=== PATIENT | male | born 1955 | race Caucasian/White ===

== ENCOUNTER 2025-05-23 13:26 | Emergency (ER) | payer OTHER ==
[~2025-05-23] VITALS: Ht 175.3 cm; Wt 84.0 kg
--- NOTE | 2025-05-23 13:42 | ED.PDOC ---
History of Present Illness HPI Comments 69 year old male PMHx HTN, HLD presents to the ED via EMS with a chief complaint of back pain onset last night around 22:00. Patient states he began experiencing LT sided low back pain, radiates down to LT leg, has taken [place], Flexeril with slight, intermittent relief. Patient states pain was intense, causing nausea. He states he is also experiencing bilateral feel numbness. Denies fever, chills, nausea, vomiting, cough, congestion, dizziness, shortness of breath, fall, injury, trauma. No other symptoms or modifying factors present at this time. Chief Complaint: Back Pain Time Seen by MD: 13:30 Primary Care Provider: STEPH Navarro Notes: Medications, Allergies Allergies: Coded Allergies: NO KNOWN ALLERGIES (Unverified , 08/03/14) Information Source: Patient, Emergency Med Personnel Mode of Arrival: EMS Severity: Moderate Timing: Hours Duration: Since onset Prehospital treatment: Pain Meds Past Medical History PAST MEDICAL HISTORY: High Lipids, HTN Surgical History (Other): carpal tunel Family History Family History: Reviewed,noncontributory to illness, No family hx of Cancer, No family hx of DM, No family hx of Heart bernardino, No family hx of HTN, No family hx ofKidney bernardino, No family hx of Liver bernardino, No family hx of Lung bernardino, No family hx of Stroke Social History Smoker: Non-Smoker Alcohol: Denies ETOH Use Drugs: Denies Drug Use Lives In: Home Constitutional: denies: chills, diaphoresis, fatigue, fever, malaise, sweats, weakness, others EENTM: denies: blurred vision, double vision, ear bleeding, ear discharge, ear drainage, ear pain, ear ringing, eye pain, eye redness, hearing loss, mouth pain , mouth swelling, nasal discharge, nose bleeding, nose congestion, nose pain, photophobia, tearing, throat pain, throat swelling, voice changes, others Respiratory: denies: cough, hemoptysis, orthopnea, SOB at rest, shortness of breath, SOB with excertion, stridor, wheezing, others Cardiovascular: denies: chest pain, dizzy spells, diaphoresis, Dyspnea on exertion, edema, irregular heart beat, left arm pain, lightheadedness, palpitations, PND, syncope, others Gastrointestinal: denies: abdomen distended, abdominal pain, blood streaked bowels, constipated, diarrhea, dysphagia, difficulty swallowing, hematemesis, melena, nausea, poor appetite, poor fluid intake, rectal bleeding, rectal pain, vomiting, others Genitourinary: denies: burning, dysuria, flank pain, frequency, hematuria, incontinence, penile discharge, penile sore, pain, testicle pain, testicle swelling, urgency, others Neurological: reports: numbness (bilateral feet); denies: dizziness, fainting, headache, left sided numbness, left sided weakness, paresthesia, pre-existing deficit, right sided numbness, right sided weakness, seizure, speech problems, tingling, tremors, weakness, others Musculoskeletal: reports: back pain, others (LT lef pain); denies: gout, joint pain, joint swelling, muscle pain, muscle stiffness, neck pain Integumetry: denies: bruises, change in color, change in hair/nails, dryness, laceration, lesions, lumps, rash, wounds, others Allergic/Immunocompromised: denies: Difficulty Healing, Frequent Infections, Hives, Itching, others Hematologic/Lymphatic: denies: anemia, blood clots, easy bleeding, easy bruising, swollen glands, others Endocrine: denies: excessive hunger, excessive sweating, excessive thirst, excessive urination, flushing, intolerance to cold, intolerance to heat, unexplained weight gain, unexplained weight loss, others Psychiatric: denies: anxiety, bipolar disorder, depression, hopeless, panic disorder, schizophrenia, sleepless, suicidal, others All Other Systems: Reviewed and Negative Physical Exam General Appearance: Normal HEENT: Normal ENT Inspection, Pharynx Normal, TMs Normal Neck: Full Range of Motion, Non-Tender, Normal, Normal Inspection Respiratory: Chest Non-Tender, Lungs Clear, No Accessory Muscle Use, No Respiratory Distress, Normal Breath Sounds Cardiovascular: No Edema, No JVD, No Murmur, No Gallop, Normal Peripheral Pul ses, Regular Rate/Rhythm Breast Exam: Deferred Gastrointestinal: No Organomegaly, Non Tender, No Pulsatile Mass, Normal Bowel Sounds, Soft Genitalia: Deferred Pelvic: Deferred Rectal: Deferred Extremities: No calf tenderness, Normal capillary refill, Normal inspection, Normal range of motion, Non-tender, No pedal edema Musculoskeletal : Apperance: Normal Neurologic: Alert, project management director II-XII nml as Tested, No Motor Deficits, Normal Affect, Normal Mood, No Sensory Deficits Cerebellar Function: Normal Reflexes: Normal Skin: Dry, Normal Color, Warm Lymphatic: No Adenopathy Was a procedure done? Was a procedure done?: No Differential Dx Considerations may include: Musculoskeletal strain, lumbar strain X-Ray, Labs, Meds, VS Vital Signs Date Time Temp Pulse Resp B/P (MAP) Pulse Ox O2 Delivery O2 Flow Rate FiO2 05/23/25 13:56 58 18 112/42 05/23/25 13:50 97.9 58 18 112/42 (65) 100 97.9 05/23/25 13:47 18 98 Room Air* 0 21 05/23/25 13:29 97.6 64 18 119/71 100 97.6 Lab Test 05/23/25 14:16 Range/Units White Blood Count 7.0 4.4-10.8 10^3/uL Red Blood Count 4.55 4.5-5.90 10^6/uL Hemoglobin 14.3 13.5-17.5 g/dL Hematocrit 41.8 41.0-53.0 % Mean Corpuscular Volume 91.9 80.0-100.0 fL Mean Corpuscular Hemoglobin 31.6 28.0-32.0 pg Mean Corpuscular Hemoglobin Concent 34.4 32.0-36.0 g/dL Red Cell Distribution Width 15.1 H 11.8-14.3 % Platelet Count 150 140-450 10^3/uL Mean Platelet Volume 10.6 6.9-10.8 fL Neutrophils (%) (Auto) 82.0 H 37.0-80.0 % Lymphocytes (%) (Auto) 7.3 L 10.0-50.0 % Monocytes (%) (Auto) 10.0 0.0-12.0 % Eosinophils (%) (Auto) 0.3 0.0-7.0 % Basophils (%) (Auto) 0.4 0.0-2.0 % Neutrophils # (Auto) 5.7 1.6-8.6 10 ^3/uL Lymphocytes # (Auto) 0.5 0.4-5.4 10 ^3/uL Monocytes # (Auto) 0.7 0-1.3 10 ^3/uL Eosinophils # (Auto) 0 0-0.8 10 ^3/uL Basophils # (Auto) 0 0-0.2 10 ^3/uL Nucleated Red Blood Cells 0.1 % Sodium Level 137 136-145 mmol/L Potassium Level 3.6 3.5-5.1 mmol/L Chloride Level 107 98-107 mmol/L Carbon Dioxide Level 19 L 20-31 mmol/L Anion Gap 11 5-15 Blood Urea Nitrogen 7 L 9-23 mg/dL Creatinine 0.76 0.700-1.30 mg/dL Glomerular Filtration Rate Calc 99 >90 mL/min BUN/Creatinine Ratio 9.2 L 10.0-20.0 Serum Glucose 94 74-106 mg/dL Calcium Level 9.2 8.7-10.4 mg/dL Current Medications Medications (Trade) Dose Ordered Sig/Darnell Route Start Time Stop Time Status Last Admin Sodium Chloride 1,000 ml @ 1,000 mls/hr Q1H ONCE IV 05/23/25 13:45 05/23/25 14:44 DC 05/23/25 14:13 Morphine Sulfate 4 mg ONCE ONCE IV 05/23/25 13:45 05/23/25 13:46 DC 05/23/25 13:56 Cyclobenzaprine HCl (Flexeril Tablet) 10 mg ONCE ONCE PO 05/23/25 13:45 05/23/25 13:46 DC 05/23/25 13:50 Time of 1ST Reevaluation: 14:00 Reevaluation 1ST: Unchanged Patient Education/Counseling: Diagnosis, Treatment, Prognosis Family Education/Counseling: No Family Present SEPSIS Sepsis Screen Physician Orders Lumbar Spine 3 View (05/23/25 13:35) Urinalysis (05/23/25 13:35) Vital Signs Date Time Temp Pulse Resp B/P (MAP) Pulse Ox O2 Delivery O2 Flow Rate FiO2 05/23/25 13:56 58 18 112/42 05/23/25 13:50 97.9 58 18 112/42 (65) 100 97.9 05/23/25 13:47 18 98 Room Air* 0 21 05/23/25 13:29 97.6 64 18 119/71 100 97.6 Laboratory Tests Test 05/23/25 14:16 White Blood Count 7.0 10^3/uL (4.4-10.8) Medications Medications Dose Ordered Sig/Darnell Route Start Time Stop Time Status Last Admin Dose Admin Cyclobenzaprine HCl 10 mg ONCE ONCE PO 05/23/25 13:45 05/23/25 13:46 DC 05/23/25 13:50 Morphine Sulfate 4 mg ONCE ONCE IV 05/23/25 13:45 05/23/25 13:46 DC 05/23/25 13:56 Sodium Chloride 1,000 ml @ 1,000 mls/hr Q1H ONCE IV 05/23/25 13:45 05/23/25 14:44 DC 05/23/25 14:13 Departure 1 Departure Time of Disposition: 16:00 (Patient with intractable lower back pain. We will admit patient for pain control and expert consultation) Impression: Primary Impression: Intractable low back pain Additional Impression: Leg weakness Qualified Codes: R29.898 - Other symptoms and signs involving the musculoskeletal system Disposition: ADMITTED INPATIENT Admit to: Med Surg Condition: Serious Critical Care Note Critical Care Time?: No Stability Stability form required: No Heart Score Heart Score: Heart Score Response (Comments) Value History N/A 0 EKG N/A 0 Age N/A 0 Risk Factors N/A 0 Troponin N/A 0 Total 0 I personally scribed for PRO JETT MD ([email or web address]) on 05/23/25 at 13:42. Electronically submitted by Hoa Schmidt ([email or web address]). PRO JETT MD May 23, 2025 13:42
[2025-05-23 13:47] VITALS: RESP 18; O2SAT 98
[2025-05-23] MEDS: CYCLOBENZAPRINE HCL 10 MG TAB PO ONE ×2 (13:50→22:54)
[2025-05-23] MEDS: MORPHINE SULFATE 4 MG/ML SYR/VIAL IV ONE ×2 (13:56→16:53)
[2025-05-23] MEDS: SODIUM CHLORIDE 0.9% 1,000 ML IV ONE (14:13)
[2025-05-23 14:27] LABS: Hematocrit 41.8 % (41.0-53.0); Hemoglobin 14.3 g/dL (13.5-17.5); Mean Corpuscular Hemoglobin 31.6 pg (28.0-32.0); Mean Corpuscular Volume 91.9 fL (80.0-100.0); Nucleated Red Blood Cells % 0.1 %
--- NOTE | 2025-05-23 14:32 | DVH ---
INDICATION: lower back pain TECHNIQUE: Frontal and lateral views of the lumbar spine were obtained. COMPARISON: MR LUMBAR SPINE WO on DOS: 09/09/24, DX BONE DENSITY (DXA) SPINE/HIP/FOREARM on DOS: 09/07/24 FINDINGS: . There are no fractures or subluxations. Vertebral body heights and disc spaces are well m aintained. Paravertebral soft tissues are unremarkable. IMPRESSION: 1. Of the visualized spine, there is no evidence for fracture or subluxation.
[2025-05-23 14:34] LABS: Chloride 107 mmol/L (98-107); Potassium 3.6 mmol/L (3.5-5.1); Sodium 137 mmol/L (136-145)
[2025-05-23 14:35] LABS: Anion Gap 11 (5-15); Calcium 9.2 mg/dL (8.7-10.4)
[2025-05-23 14:36] LABS: Carbon Dioxide 19 mmol/L (20-31)
[2025-05-23 14:40] LABS: BUN/Creatinine Ratio 9.2 (10.0-20.0); Blood Urea Nitrogen 7 mg/dL (9-23); Glucose 94 mg/dL (74-106)
[2025-05-23 16:32] LABS: Urine Protein, UAD Negative (Negative)
[2025-05-23] MEDS: KETAMINE 50mg/ML 10ml Vial (500mg/10ml) IV ONE (16:54)
[2025-05-23] MEDS: HYDROmorphone HCL 2 MG/ML VL/or syr IV ONE (20:29)
[2025-05-23] MEDS: ONDANSETRON HCL 4 MG/2 ML VIAL IV ONE (20:30)
--- NOTE | 2025-05-23 21:29 | DVH ---
EXAM: CT LS SPINE WO CONTRAST HISTORY: intractable pain COMPARISON: XY LUMBAR SPINE 3 VIEW on DOS: 05/23/25, MR LUMBAR SPINE WO on DOS: 09/09/24 CTDIvol 36.94 mGy, DLP 1357.02 mGy*cm. TECHNIQUE: Multiple axial CT images of the spine were obtained using bone algorithm. Axial and erwin l reformatting was done. Bone and soft tissue windows were reviewed. FINDINGS: No evidence of definite acute fracture, spinal dislocation, or significant appearing acute subluxatio n is seen. Mild degenerative disease throughout lumbar spine with moderate diffuse posterior disc bulging. No ob vious severe spinal stenosis or large focal disc herniation. MRI would better assess however. IMPRESSION: 1. No definite CT evidence of acute fracture or dislocation of the bony lumbar spine.
--- NOTE | 2025-05-23 22:25 | DVHINCON2 ---
AZALIA WOOD POOL FINISHER 05/23/25 2225: Date of service: May 23, 2025 Referring Physician ER physician Reason for Consultation Medical management History of Present Illness 69-year-old male with past medical history of thyroid disorder, hypertension, peripheral neuropathy, orthopedic back surgery, left wrist surgery presents with complaints of sharp low back pain that began at 10:00 p.m. the night before. Patient states he was lying in bed when pain was sudden onset. Denies any injury or lifting anything heavy. States pain is centered above left mid buttock radiating down the leg. Also endorses he has having difficulty walking because of back pain. Endorsed he took Tek[place]ha at home for pain. There are no complaints of incontinence or loss of bowel. During the emergency department evaluation CBC is unremarkable. CMP is unremarkable. X-ray of the lumbar spine read no acute fracture or dislocation. CT of the lumbar spine red no definite CT evidence of acute fracture or dislocation of the lumbar spine. Patient has no complaints of fevers, chills, shortness of breath, chest pain, palpitations, falls, injuries, abdominal pain, nausea, vomiting, hematemesis, hematochezia, melena, dysuria. Allergies: Coded Allergies: NO KNOWN ALLERGIES (Unverified , 08/03/14) Home Meds Active Scripts Cyclobenzaprine Hcl (Cyclobenzaprine Hcl) 5 Mg Tab, 10 MG PO Q8HPRN PRN for 5 Days, #30 TAB Prov:AZALIA WOOD NP 05/23/25 Review of Systems Ten systems reviewed and negative except as per HPI Vital Signs Vital Signs Date Time Temp Pulse Resp B/P (MAP) Pulse Ox O2 Delivery O2 Flow Rate FiO2 05/23/25 20:59 90 18 110/85 05/23/25 19:59 98.1 94 98.1 05/23/25 13:47 Room Air* 0 21 Physical Exam GENERAL: Patient appearing stated age, in no acute distress. HEENT: Pupils equal and reactive to light and accommodation. Extraocular muscles intact. Mucous membranes moist. Conjunctivae pink. Anicteric sclerae. LUNGS: Bilateral air entry. No wheezes, rhonchi or rales. HEART: Regular rate and rhythm. Normal S1 and S2. ABDOMEN: BS normoactive, soft, nontender, and nondistended. No CVA tenderness. EXTREMITIES: No clubbing, cyanosis, edema. No calf tenderness. Pedal pulses 2+. NEUROLOGICAL: The patient is alert and oriented times 3. CN II-XII intact. No focal deficits on gross sensory or motor examination. Bilateral lower extremities have equal purposeful movement strength 4/5 bilaterally Labs/Diagnostic Data Labs Test 05/23/25 14:16 05/23/25 13:35 Range/Units White Blood Count 7.0 4.4-10.8 10^3/uL Red Blood Count 4.55 4.5-5.90 10^6/uL Hemoglobin 14.3 13.5-17.5 g/dL Hematocrit 41.8 41.0-53.0 % Mean Corpuscular Volume 91.9 80.0-100.0 fL Mean Corpuscular Hemoglobin 31.6 28.0-32.0 pg Mean Corpuscular Hemoglobin Concent 34.4 32.0-36.0 g/dL Red Cell Distribution Width 15.1 H 11.8-14.3 % Platelet Count 150 140-450 10^3/uL Mean Platelet Volume 10.6 6.9-10.8 fL Neutrophils (%) (Auto) 82.0 H 37.0-80.0 % Lymphocytes (%) (Auto) 7.3 L 10.0-50.0 % Monocytes (%) (Auto) 10.0 0.0-12.0 % Eosinophils (%) (Auto) 0.3 0.0-7.0 % Basophils (%) (Auto) 0.4 0.0-2.0 % Neutrophils # (Auto) 5.7 1.6-8.6 10 ^3/uL Lymphocytes # (Auto) 0.5 0.4-5.4 10 ^3/uL Monocytes # (Auto) 0.7 0-1.3 10 ^3/uL Eosinophils # (Auto) 0 0-0.8 10 ^3/uL Basophils # (Auto) 0 0-0.2 10 ^3/uL Nucleated Red Blood Cells 0.1 % Sodium Level 137 136-145 mmol/L Potassium Level 3.6 3.5-5.1 mmol/L Chloride Level 107 98-107 mmol/L Carbon Dioxide Level 19 L 20-31 mmol/L Anion Gap 11 5-15 Blood Urea Nitrogen 7 L 9-23 mg/dL Creatinine 0.76 0.700-1.30 mg/dL Glomerular Filtration Rate Calc 99 >90 mL/min BUN/Creatinine Ratio 9.2 L 10.0-20.0 Serum Glucose 94 74-106 mg/dL Calcium Level 9.2 8.7-10.4 mg/dL Urine Color Yellow Yellow Urine Clarity Clear Clear Urine pH 5.5 5.0-9.0 Urine Specific [place] 1.015 1.001-1.035 Urine Protein Negative Negative Urine Ketones Negative Negative Urine Blood Negative Negative /uL Urine Nitrite Negative Negative Urine Bilirubin Negative Negative Urine Urobilinogen Normal Negative mg/dL Urine Leukocyte Esterase Negative Negative /uL Urine RBC <1 0 - 3 /hpf Urine Microscopic WBC 2 0-3 /HPF Urine Squamous Epithelial Cells None seen <5 /hpf Urine Bacteria None seen None Seen /hpf Urine Mucus Few None Seen Urine Glucose Normal Normal mg/dL Assessment Chronic low back pain Lower back Muscle strain Patient was seen and evaluated ER BX near the nurses station. The patient's chart will be reviewed in his entirety, including lab work, imaging, treatment, physical assessment, and patient history. CBC is unremarkable, CMP is unremarkable, lumbar spine x-ray was interpreted per the radiologist reviewed by myself with no acute evidence of subluxation. CT of the lumbar spine was interpreted for the radiologist reviewed by myself. No definite CT evidence of acute fracture or dislocation of the bony lumbar spine. Physical assessment patient is able to move independently with purposeful movement. Bilateral lower extremities at full range of motion with strength 4/5 equally. There has been no loss of bowel or incontinent episodes. Patient has remained hemodynamically stable throughout his emergency department visit. Patient did endorse that back pain improved with cyclobenzaprine and IV morphine. And is requesting next dose of pain medication. I did go ahead and order Tekonsha tablet prior to discharge. Plan/Recommendation Given there is no acute injury or physical decompensation at this time, rather appears to be a low back muscle strain I will be discharging the patient home. I did recommend Nsaids, muscle relaxer and physical therapy on an outpatient basis. Patient declined. Nsaids and endorses he already has Tek[place]ha ordered. O crew manager, Eda has been consulted to establish home safety evaluation along with home health with physical therapy. Patient will follow up with orthopedic spinal specialist on outpatient basis. He can also have MRI low back completed on outpatient basis. Plan of care was discussed in detail with the patient who states that he understands. Patient also provided with tricky precaution, including, unlimited to fevers, chills, dizziness, thinker, shortness of breath, chest, pain,, vom iting, incontinence, sudden in loss of bowel, when these were to occur, return to the nearest emergency department for further evaluation treatment. Plan discussed with: Patient ABISAI GU MD 05/24/25 1730: Allergies: Coded Allergies: NO KNOWN ALLERGIES (Unverified , 08/03/14) Home Meds Active Scripts Cyclobenzaprine Hcl (Cyclobenzaprine Hcl) 5 Mg Tab, 10 MG PO Q8HPRN PRN for 5 Days, #30 TAB Prov:AZALIA WOOD NP 05/23/25 Additional Comments Additional Comments Additional Comments Patient's chart is reviewed and discussed with the nurse practitioner. Patient is seen and evaluated by nurse practitioner in the ER. I agree with his evaluation, documentation, assessment and care plan as outlined. AZALIA WOOD NP May 23, 2025 22:25 ABISAI GU MD May 24, 2025 17:30
[2025-05-23] MEDS ORDERED: CYCL-837 PO (22:27)
[2025-05-23] MEDS: HYDROcodone-ACET 7.5/325MG TAB PO ONE (22:54)
[2025-05-23 23:00] VITALS: BP 110/64; PULSE 90; RESP 18; TEMP 98.3; O2SAT 98
== END 2025-05-24 01:00 | disposition home or self-care (01) ==
LOC: EDBD 13:26 → ER 13:26
DX: M54.50 Low back pain, unspecified (principal); R53.1 Weakness; G89.29 Other chronic pain; E78.5 Hyperlipidemia, unspecified; I10 Essential (primary) hypertension; Z79.899 Other long term (current) drug therapy
CPT/HCPCS: 36415; 72100; 72131; 80048; 81001; 85025; 96361; 96374; 96375; 96376; 99285; J1171; J2270; J2405; J7030